=== PATIENT | female | born 1930 | race Caucasian/White ===

== ENCOUNTER 2016-08-21 22:34 | Inpatient (IN) | payer MEDICARE ==
[~2016-08-21] VITALS: Ht 157 cm; Wt 66.0 kg
--- NOTE | ~2016-08-21 | WRIGHTHP ---
[place], [place] PATIENT HISTORY AND PHYSICAL EXAM NAME: YRN CARABALLO [facility] #: [id number] UNIT #: [id number] ROOM: 420 DOCTOR: BHUPENDRA MCFARLAND MD BIRTHDATE: [birth year] DOS: 08/22/2016 HISTORY OF PRESENT ILLNESS: The patient is 86 years old, patient of Dr. Bishop, comes in after having found to have epistaxis at the [facility]. She lives in the assisted living. She has been doing fairly well at the [facility] as per the patient, has been following with Dr. Bishop and has been checking his protime, but she is not exactly sure when her last one was. She was admitted here in May with chest pain and was ruled out for NE and she was discharged to home. The patient denies having any chest pains or palpitations, does not have any fever or chills. PAST MEDICAL HISTORY: 1. Chronic atrial fibrillation, for which she is on Coumadin. She was in rapid ventricular response during the last hospitalization in May. 2. Hypothyroidism. 3. Benign hypertension. 4. History of coronary artery disease of the [place] coronaries with a history of stenting. MEDICATIONS: Medications were amiodarone 200 b.i.d., Xanax 0.25 b.i.d., amlodipine 5 daily, ascorbic acid 500 mg daily, BuSpar 5 b.i.d., vitamin D 1000 units daily, levothyroxine 0.05 daily, losartan 50 daily, metformin 500 b.i.d., metoprolol 50 t.i.d., Zofran 82 mg q.6h., Pravachol 20 daily, Risperdal 0.25 q.h.s., warfarin 2.5 Tuesday, Tuesday, Tuesday, Tuesday, Tuesday and 5 mg Tuesday and . SOCIAL HISTORY: Nonsmoker, does not use any alcohol. She is unmarried and does not have any children. PHYSICAL EXAMINATION: GENERAL: She is awake and alert and oriented, slightly anxious, pulled out her Rhino plug. VITAL SIGNS: Blood pressure is 130/80, pulse is 60, respirations 18, temperature 97.3. HEENT: Left nostril continues to have bright red blood coming out quite rapidly. LUNGS: Clear. CARDIOVASCULAR: Irregular, controlled. ABDOMEN: Obese, soft. EXTREMITIES: Without any edema. ASSESSMENT: 1. Epistaxis, Rhino plug was put in the Emergency Room, but unfortunately, the patient has pulled it out, we will pack it this morning. 2. Hypercoagulable state from long-term use of anticoagulants. The patient will have a Coumadin held and because of profuse bleeding will be given one dose of vitamin K and 1 unit of fresh frozen plasma. Recheck the protime in the morning. 3. Chronic atrial fibrillation, controlled right now. She is not a candidate for Coumadin, which will be discontinued. [place], [place] PATIENT HISTORY AND PHYSICAL EXAM [facility]: [facility] [id number] UNIT #: [id number] ROOM: [facility] DOCTOR: BHUPENDRA MCFARLAND MD BIRTHDATE: [birth year] 4. Benign hypertension, controlled. 5. Type 2 diabetes mellitus, non-insulin dependent. I ordered a regular diet for the patient. We will check blood sugars twice a day. BHUPENDRA MCFARLAND MD CM:HISPHYS:PATIENT HISTORY AND PHYSICAL EXAMINATION [id number] BHUPENDRA MCFARLAND MD 08/22/16 1327 interface
--- NOTE | ~2016-08-21 | PR ---
[place], [place] PROGRESS NOTE NAME: YRN CARABALLO [facility] #: [id number] UNIT #: [id number] ROOM: 420 DOCTOR: ROZ DEE,MIC Lyle BIRTHDATE: [birth year] DOS: 08/24/2016 SUBJECTIVE: The patient is fairly back to her normal mental state. She is no longer agitated and restless, but she is not quite sure about the date of arrival to the hospital. OBJECTIVE: VITAL SIGNS: Graphic trends show that if her blood pressure is 150/60, pulse is 57, respirations 20, temperature 97.8. LUNGS: Clear. HEART: Irregular. ABDOMEN: Soft. EXTREMITIES: Without any edema. Normal epistaxis. LABORATORY DATA: Blood sugar was 139 this morning. ASSESSMENT AND PLAN: 1. Epistaxis, which is resolved. 2. Hypercoagulable state from a long-term use of anticoagulants. Coumadin has been discontinued, fresh frozen plasma and vitamin K was given and the protimes have become normal. The patient is probably not a good candidate for Coumadin because of the pretty significant bleed. I have discontinued the Coumadin. She will follow up with her PCP as an outpatient and eating. They can make the decision as regards to whether the patient should go back on the medicines are not and since amiodarone dosage was cut down the heart rate has improved. MIC COURTNEY MD CM:PNTRANS [phone] MIC COURTNEY MD 08/24/16 1015 interface
--- NOTE | ~2016-08-21 | PR ---
[place], [place] PROGRESS NOTE NAME: YRN CARABALLO [facility] #: [id number] UNIT #: [id number] ROOM: 420 DOCTOR: BHUPENDRA MCFARLAND MD BIRTHDATE: [birth year] DOS: 08/22/2016 SUBJECTIVE: The patient became more restless as the day progressed and had to go on one-on-one, one dose of Haldol was also given. This morning, she woke up , is fairly awake and alert and oriented, does not appear to be in any distress and did answer questions appropriately, knew what happened yesterday. OBJECTIVE: VITAL SIGNS: Graphic trend shows a pressure of 180/61, pulse of 50, respirations 20, temperature 98.0. LUNGS: Diminished breath sounds, clear. HEART: Irregular. ABDOMEN: Obese, soft. EXTREMITIES: Without any edema. As per the nursing staff and the aides, the patient did sleep very well. ASSESSMENT AND PLAN: 1. Severe epistaxis from hypercoagulable state. The patient received vitamin K and fresh frozen plasma yesterday and further packing of the nasal cavity, and the patient has not had any further episodes of bleeding. 2. Chronic atrial fibrillation, on Coumadin. Protime was extremely high. Coumadin on hold. We will restart at a later date. 3. Bradycardia. We will cut back on the dose of the amiodarone to 200 mg daily. 4. Failure to thrive with encephalopathy and frailty. The last PT/OT for evaluation as well as social service consult for transfer back to the assisted living. If the mental status improves, she may be able to go back to the assisted living, which seems like almost back to normal. 5. Benign hypertension. Pressures are slightly on the high side. We will continue to follow that up. BHUPENDRA MCFARLAND MD CM:PNTRANS [phone] BHUPENDRA MCFARLAND MD 09/29/16 1142 interface
--- NOTE | ~2016-08-21 | DS ---
[place], [place] DISCHARGE SUMMARY NAME: YRN CARABALLO [facility] #: [id number] UNIT #: [id number] ROOM: 420 DOCTOR: BHUPENDRA MCFARLAND MD BIRTHDATE: [birth year] DOS: 08/24/2016 DIAGNOSES: 1. Epistaxis, resolved. 2. Hypercoagulable state from long-term use of anticoagulants. 3. Long-term use of anticoagulants. 4. Chronic atrial fibrillation with bradycardia. 5. Encephalopathy, metabolic. 6. Benign hypertension. 7. Hypothyroidism. 8. Coronary artery disease of [place] coronaries. 9. Type 2 diabetes mellitus, non-insulin dependent. DISCHARGE MEDICATIONS: The patient's medications on discharge will be amiodarone 200 mg daily, Xanax 0.25 twice a day p.r.n. which are home medication, losartan 50 daily, metformin 500 b.i.d., Pravachol 20 daily, ascorbic acid is being discontinued because of the hypercoagulable state, the warfarin has been discontinued. This needs to be reordered by the PCP at a later date, BuSpar 5 b.i.d., Zofran 2 mg q.6h. p.r.n., metformin 500 b.i.d., sliding scale insulin, levothyroxine 50 mcg daily, vitamin D 1000 units daily. DIET: ADA 1800, blood sugars twice a day with coverage. HOSPITAL COURSE: This patient is 86 years old, who comes in with a massive bleed from her nostril. It was difficult to control in the Emergency Room, so the patient was admitted after Rhino plug was placed. Her protime was also extremely elevated. After admission, the patient became quite confused and pulled out the Rhino plug and the nose continued to start bleeding. It was difficult to stop and so she had packing applied. Fresh frozen plasma and vitamin K was given, and the Coumadin was discontinued and the protime has come down. H and H was ordered, which did not show much drop from 13.3-11.8. MRSA of the nares was negative. BMP showed creatinine of 1.6 with a GFR of 37, stage III renal failure. The patient did have a on one-on-one during her stay here because of her confusion, restlessness, and wanting to wander and leave the facility. This resolved after 24 hours and an injection of Haldol. The patient is much more awake and alert and oriented, knows her events prior to this discharge, but she does get a little disoriented as regards to exact time of admission and at the end exact of admission. The patient is stable and PT and OT has evaluated and they feel that she can go to assisted living. Visiting nurses will be consulted. PT/OT has been ordered and patient to follow up with her PCP, Dr. Bishop as an outpatient about continuation of her Coumadin. [place], [place] DISCHARGE SUMMARY NAME: YRN CARABALLO UNIT #: [id number] ROOM: 420 DOCTOR: BHUPENDRA MCFARLAND MD BIRTHDATE: [birth year] BHUPENDRA MCFARLAND MD CM:DISCHARG [id number] BHUPENDRA MCFARLAND MD 08/24/16 0943 interface
[2016-08-21 22:34] VITALS: BP 118/60
[~2016-08-21 22:34] MED LIST: ACETAMINOPHEN325 M2 PO; ALPRAZOLAM0.25 M2 PO; AMOXICILLIN500 M2 PO; ANTIVERT12.5 MG PO; ASCORBIC ACID500 M2 PO; ASPIRIN81 M1 PO; AUGMENTIN 875 M1 TAB PO; CARDIZEM CD240 M1 PO; CIPRODEX 0.3%-7.5 ML OT; CLARITIN10 MG PO; COMPAZINE10 MG PO; COUMADIN5 M2 PO; Coumadin5 MG PO; DIGOXIN0.125 MG PO; IMDUR SA30 MG PO; LASIX20 MG PO; LEVOTHYROXINE0.05 MG PO; LOPRESSOR25 MG PO; LOSARTAN POTAS100 M1 PO; METFORMIN500 MG PO; METOPROLOL TART50 M1 PO; PACERONE200 MG PO; POTASSIUM CHLO10 MEQ PO; PRAVASTATIN SOD20 MG PO; RISPERDAL M-TAB1 MG PO; VITAMIN D31000 IU PO; WARFARIN SOD5 MG PO; ZOFRAN ODT4 MG SL
[2016-08-21] MEDS ORDERED: COUMADIN5 M2 PO ×2 (22:50→22:51)
[2016-08-21] MEDS ORDERED: NORVASC5 MG PO (22:53)
[2016-08-21] MEDS ORDERED: BUSPAR5 MG PO (22:53)
[2016-08-21] MEDS ORDERED: Zofran4 MG PO (22:55)
[2016-08-21 22:59] LABS: BASO % 0.5 % (0.0-1.0); EOS # 0.1 10*3/uL (0.0-0.4); EOS % 1.8 % (1.0-4.0); HEMATOCRIT 41.6 % (37.0-47.0); HEMOGLOBIN 13.3 g/dl (12.0-16.0); LYMPH # 1.1 10*3/uL (1.3-4.4); LYMPH % 13.5 % (27.0-41.0); MEAN CELL VOLUME 98.8 fl (81.0-99.0); MEAN CORPUSCULAR HGB 31.6 pg (27.0-31.0); MEAN PLATELET VOLUME 10.9 fl (9.6-12.3); MONO # 0.8 10*3/uL (0.1-1.0); NEUT # 5.8 10*3/uL (2.3-7.9); NEUT % 73.9 % (47.0-73.0); PLATELET COUNT AUTOMATED 294 10*3/uL (130-400); RED BLOOD COUNT 4.21 10*6/uL (4.10-5.10); WHITE BLOOD COUNT 7.9 10*3/uL (4.8-10.8)
[2016-08-21 23:07] VITALS: BP 136/53
[2016-08-21 23:11] LABS: POTASSIUM 4.3 mmol/L (3.5-5.1)
[2016-08-21 23:25] LABS: INTERNATIONAL NORM RATIO 10.2 (2.0-3.5)
[2016-08-22] VITALS (9 sets, daily range): BP systolic 114–187; BP diastolic 43–94
[2016-08-22 07:32] LABS: PROTHROMBIN TIME 91.8 SECONDS (9.0-12.4)
[2016-08-22 07:36] LABS: INTERNATIONAL NORM RATIO 8.1 (2.0-3.5)
[2016-08-22] MEDS ORDERED: RISPERDAL0.25 MG PO (11:29)
[2016-08-23] VITALS: BP 180/61
[2016-08-23 06:37] LABS: BASO % 0.5 % (0.0-1.0); EOS # 0.2 10*3/uL (0.0-0.4); EOS % 1.8 % (1.0-4.0); HEMATOCRIT 36.7 % (37.0-47.0); HEMOGLOBIN 11.8 g/dl (12.0-16.0); LYMPH # 1.1 10*3/uL (1.3-4.4); LYMPH % 13.4 % (27.0-41.0); MEAN CELL VOLUME 98.9 fl (81.0-99.0); MEAN CORPUSCULAR HGB 31.8 pg (27.0-31.0); MEAN CORPUSCULAR HGB CONC 32.2 g/dl (33.0-37.0); MEAN PLATELET VOLUME 11.1 fl (9.6-12.3); MONO # 0.7 10*3/uL (0.1-1.0); MONO % 8.7 % (3.0-9.0); NEUT # 6.2 10*3/uL (2.3-7.9); NEUT % 75.1 % (47.0-73.0); PLATELET COUNT AUTOMATED 248 10*3/uL (130-400); RED BLOOD COUNT 3.71 10*6/uL (4.10-5.10); RED CELL DISTRI WIDTH 14.8 % (0-14.5); WHITE BLOOD COUNT 8.3 10*3/uL (4.8-10.8)
[2016-08-23 07:14] LABS: INTERNATIONAL NORM RATIO 1.4 (2.0-3.5); PROTHROMBIN TIME 14.6 SECONDS (9.0-12.4)
[2016-08-23 07:39] LABS: POTASSIUM 4.1 mmol/L (3.5-5.1)
[2016-08-23 08:00] VITALS: BP 154/60
[2016-08-23 12:00] VITALS: BP 141/72
[2016-08-23 16:00] VITALS: BP 140/88
[2016-08-23 20:00] VITALS: BP 155/53
[2016-08-24] VITALS: BP 130/62
[2016-08-24 08:00] VITALS: BP 150/60
[2016-08-24] MEDS ORDERED: PACERONE200 MG PO (08:08)
== END 2016-08-24 11:06 | disposition home or self-care (01) | DRG 150 ==
LOC: ED 22:34 → EDHOLD 08-22 00:57 → 4E 08-22 00:57
PROVIDERS: Emergency Medicine Emergency Medical Services; Internal Medicine
PROC: 2Y41X5Z Packing of Nasal Region using Packing Material (ICD-10-PCS; principal; 2016-08-22)
PROC: 30233L1 Transfusion of Nonautologous Fresh Plasma into Peripheral Vein, Percutaneous Approach (ICD-10-PCS; 2016-08-22)
PROC: 30233K1 Transfusion of Nonautologous Frozen Plasma into Peripheral Vein, Percutaneous Approach (ICD-10-PCS; 2016-08-22)
DX: R04.0 Epistaxis (principal); G93.41 Metabolic encephalopathy; D68.32 Hemorrhagic disorder due to extrinsic circulating anticoagulants; D68.69 Other thrombophilia; E11.22 Type 2 diabetes mellitus with diabetic chronic kidney disease; I48.2 Chronic atrial fibrillation; N18.3 Chronic kidney disease, stage 3 (moderate); R54 Age-related physical debility; E78.5 Hyperlipidemia, unspecified; R62.7 Adult failure to thrive; I12.9 Hypertensive chronic kidney disease with stage 1 through stage 4 chronic kidney disease, or unspecified chronic kidney disease; T45.515A Adverse effect of anticoagulants, initial encounter; E03.9 Hypothyroidism, unspecified; I25.10 Atherosclerotic heart disease of native coronary artery without angina pectoris; Z79.01 Long term (current) use of anticoagulants; Z90.49 Acquired absence of other specified parts of digestive tract; Z98.61 Coronary angioplasty status; Z82.49 Family history of ischemic heart disease and other diseases of the circulatory system

== ENCOUNTER → 2017-02-16 | Outpatient (CLI) | payer MEDICARE ==
[~2017-02-16] MED LIST changes: +BUSPAR5 MG PO; +NORVASC5 MG PO; +RISPERDAL0.25 MG PO; +Zofran4 MG PO
== END | disposition home or self-care (01) ==
LOC: RAD/SH 03:09 → RAD 09:00 → RAD/SH 09:00
DX: R13.10 Dysphagia, unspecified (principal); I34.8 Other nonrheumatic mitral valve disorders

== ENCOUNTER → 2017-03-30 | Day surgery (SDC) | payer MEDICARE ==
[~2017-03-30] VITALS: Ht 162.5 cm; Wt 66.7 kg
[~2017-03-30] MED LIST changes: +PROTONIX40 MG PO; +REGLAN5 MG PO
--- NOTE | ~2017-03-30 | O ---
[place], [place] OPERATIVE NOTE NAME: YRN CARABALLO [facility] #: [id number] UNIT #: [id number] ROOM: DOCTOR: XOCHITL RAM MD[place] BIRTHDATE: [birth year] DOS: 03/30/2017 GASTROENDOSCOPIC REPORT HISTORY OF PRESENT ILLNESS: An 87-year-old patient who has presented with chief complaint of dysphagia in [facility] with dyspepsia, in addition epigastric distress. PAST MEDICAL HISTORY: Associated hypertension, diabetes mellitus, hypercholesterolemia and hypothyroidism. PAST SURGICAL HISTORY: Cardiac stents, cholecystectomy. FAMILY HISTORY: Noncontributory. ALLERGIES: No known medication. SOCIAL HISTORY: Nonsmoker, nonalcohol consumer. Residing in penitentiary. PROCEDURE: Today's procedure part of investigation is panendoscopy plus biopsies and balloon dilation of esophagus. PREMEDICATION: Versed and Diprivan. SCOPE: Olympus forward-viewing gastroscope Q10 video. REPORT: After putting the patient in the left lateral position and after application of lubricant to the scope, the scope was introduced. Thereafter, under direct visualization, I advanced through the length of the esophagus without difficulty. Cervical, thoracic and distal esophagus carefully examined. Large distal esophageal ulceration with scar was noticed. Small hiatal hernia of 2 cm was identified. Gastric pouch was entered. A bile reflux gastritis noticed. Pyloric ring had a stricture with the scope itself was dilated and scope was gradually withdrawn. Gastric content suctioned out and air was removed and at this stage, a balloon size 15 was introduced into the gastric pouch and orally extracted. Highest resistance at distal esophagus was experienced. The patient tolerated the procedure well. IMPRESSION: Distal esophageal ulcer, status post biopsy, distal esophageal stricture, status post balloon dilation, small hiatal hernia, bile reflux gastritis, status post biopsy, status post pyloric ring dilation with the scope. PLAN AND DISCUSSION: Soft diet, antireflux measures with elevation of head of the bed at least 10 inches. As far as plan and discussion, we are going to start the patient on Protonix 40 mg p.o. daily, but for first 2 weeks, we are going to use Protonix 40 mg 1 b.i.d. under especial directions, Reglan 2.5 mg 1 hour a.c. dinner and follow up as an outpatient should she continue with her dysphagia in future as the ulcerations of distal esophagus was healed in the next 2 months. Then, we will reschedule outpatient esophageal dilation to optimal size, perhaps 20. [place], [place] OPERATIVE NOTE NAME: YRN CARABALLO UNIT #: [id number] ROOM: DOCTOR: LEANNA DEE,ALSIA BIRTHDATE: [birth year] I thank you very much indeed for your kind referral. ALISA RAM MD CM:OPRECORD:OPERATIVE NOTE [id number] ALISA RAM MD 03/30/17 1510 interface
[2017-03-30 10:00] VITALS: BP 199/71
[2017-03-30 10:57] VITALS: BP 170/60
[2017-03-30 11:12] VITALS: BP 170/60
[2017-03-30 11:14] VITALS: BP 170/60
[2017-03-30 11:32] VITALS: BP 167/74
== END | disposition home or self-care (01) ==
LOC: SDC 03-24 14:45
DX: K22.2 Esophageal obstruction (principal); K44.9 Diaphragmatic hernia without obstruction or gangrene; K21.9 Gastro-esophageal reflux disease without esophagitis; K29.50 Unspecified chronic gastritis without bleeding; K22.10 Ulcer of esophagus without bleeding; E78.00 Pure hypercholesterolemia, unspecified; E03.9 Hypothyroidism, unspecified; F41.9 Anxiety disorder, unspecified; E11.22 Type 2 diabetes mellitus with diabetic chronic kidney disease; I13.0 Hypertensive heart and chronic kidney disease with heart failure and stage 1 through stage 4 chronic kidney disease, or unspecified chronic kidney disease; N18.9 Chronic kidney disease, unspecified; I50.9 Heart failure, unspecified; F03.90 Unspecified dementia, unspecified severity, without behavioral disturbance, psychotic disturbance, mood disturbance, and anxiety; Z95.5 Presence of coronary angioplasty implant and graft; I25.10 Atherosclerotic heart disease of native coronary artery without angina pectoris; I48.91 Unspecified atrial fibrillation; Z79.01 Long term (current) use of anticoagulants; Z90.49 Acquired absence of other specified parts of digestive tract

== ENCOUNTER 2017-04-29 18:53 | Emergency (ER) | payer MEDICARE ==
[~2017-04-29] VITALS: Wt 59.0 kg
[2017-04-29 21:29] VITALS: BP 171/87
== END 2017-04-29 21:03 | disposition home or self-care (01) ==
LOC: ED 18:53
DX: Z00.8 Encounter for other general examination (principal); T65.891A Toxic effect of other specified substances, accidental (unintentional), initial encounter; Z90.49 Acquired absence of other specified parts of digestive tract; Z95.5 Presence of coronary angioplasty implant and graft; Z79.899 Other long term (current) drug therapy; Y92.9 Unspecified place or not applicable

== ENCOUNTER 2017-05-18 08:42 | Inpatient (IN) | payer MEDICARE ==
[~2017-05-18] VITALS: Ht 157.4 cm; Wt 64.6 kg
--- NOTE | ~2017-05-18 | PR ---
[place], [place] PROGRESS NOTE NAME: YRN CARABALLO UNIT #: [id number] ROOM: 510 DOCTOR: DAWNA VOGT MD BIRTHDATE: [birth year] DOS: 05/23/2017 SUBJECTIVE: The patient was seen today at her bedside on 05/23/2017. No family was in attendance. She is an 87-year-old woman with a history of dementia who presented to the hospital with a left bundle branch block, paroxysmal atrial fibrillation and congestive heart failure. Her code status is comfort care and we have been managing her medically. An echocardiogram interpreted by Dr. Gaspar on 05/20/2017 showed an ejection fraction of 30% with indeterminate diastolic function and moderate mitral insufficiency. Today, she is sitting in a chair beside her bed. Her breathing appears to be unlabored and she does appear to be comfortable. She is sleeping. PHYSICAL EXAMINATION: VITAL SIGNS: Her pulse is 52 and regular, blood pressure is 158/70. She is afebrile. NECK: Supple. She has no jugular distention and only mild hepatojugular reflux. Carotids are full. LUNGS: Respirations are unlabored. She has decreased breath sounds at the bases. HEART: Has a regular rhythm with a fourth heart sound, but no third heart sound. No obvious murmurs are present. Her extremities showed no edema. LABORATORY DATA: Hemoglobin is 9.8, white count 7400, platelet count 273,000. Sodium 142, potassium 2.8, BUN 20 and creatinine 1.94. She was given oral potassium earlier today. IMPRESSION: 1. Dilated cardiomyopathy, etiology not established. Ejection fraction 30%. 2. Acute on chronic systolic congestive heart failure. 3. Paroxysmal atrial fibrillation. 4. Chronic renal insufficiency with acute exacerbation. 5. Essential hypertension. 6. Type 2 diabetes mellitus. 7. Hyperlipidemia. 8. Code status is do not resuscitate, comfort care. PLAN: We will continue supportive care only and reevaluate her intermittently while she is still in the hospital. I thank the hospitalist physicians for asking our advice regarding her care. [place], [place] PROGRESS NOTE NAME: YRN CARABALLO UNIT #: [id number] ROOM: 510 DOCTOR: DAWNA VOGT MD BIRTHDATE: [birth year] DAWNA VOGT MD CM:PNDENZEL 58 DAWNA VOGT MD 05/23/17 2358 interface
--- NOTE | ~2017-05-18 | PR ---
[place], [place] PROGRESS NOTE NAME: YRN CARABALLO UNIT #: [id number] ROOM: 510 DOCTOR: DAWNA VOGT MD BIRTHDATE: [birth year] DOS: 05/21/2017 SUBJECTIVE: The patient was seen today at her bedside for followup of her atrial fibrillation and heart failure with reduced ejection fraction. She is sitting in a chair at the side of her bed and is breathing easily. She denies any chest pain. An echocardiogram was done yesterday and interpreted by Dr. Nilson Gaspar. It showed left ventricular size to be normal, but overall left ventricular systolic function was severely impaired with an ejection fraction of 30%. Diastole could not be assessed. The left atrium was moderately enlarged. There was mild aortic insufficiency, moderate mitral insufficiency and moderate tricuspid insufficiency. PHYSICAL EXAMINATION: GENERAL: Today, she is an elderly white female who is alert and in no obvious distress. VITAL SIGNS: Pulse is between 100 and 110 and irregularly irregular. Blood pressure is 148/88, she is afebrile. She weighs 64.6 kilograms. NECK: Supple. There is mild jugular distention with hepatojugular reflux present. Carotids are full. LUNGS: Respirations are unlabored. She does have decreased breath sounds at the bases. There were no rales. HEART: Has an irregularly irregular rapid rate without murmurs or gallops. The PMI was not displaced. ABDOMEN: Soft and normally active. EXTREMITIES: Showed no edema bilaterally. SKIN: Her skin was warm and dry without obvious rashes. LABORATORY DATA: Hemoglobin 2 days ago was 10.4, white count was 7500. Sodium today is 142 with potassium 3.6, BUN 17, and creatinine 2.07. IMPRESSION: 1. Heart failure with reduced left ventricular ejection fraction. 2. Left bundle branch block. 3. History of paroxysmal atrial fibrillation. 4. Coronary artery disease with history of percutaneous intervention. 5. History of hypothyroidism. 6. History of essential hypertension. PLAN: We will continue to increase her beta blockers as tolerated by her heart rate and blood pressure. Given her DNR-CC status and her age, continued conservative care is appropriate. We thank the hospitalist physicians for asking our advice regarding her care. [place], [place] PROGRESS NOTE NAME: YRN CARABALLO UNIT #: [id number] ROOM: 510 DOCTOR: DAWNA VOGT MD BIRTHDATE: [birth year] DAWNA VOGT MD CM:PNTRANS [id number] DAWNA VOGT MD 06/01/17 1445 interface
--- NOTE | ~2017-05-18 | PR ---
[place], [place] PROGRESS NOTE NAME: YRN CARABALLO [facility] #: [id number] UNIT #: [id number] ROOM: 510 DOCTOR: DAWNA VOGT MD BIRTHDATE: [birth year] DOS: 05/22/2017 SUBJECTIVE: The patient was seen at her bedside today with family in attendance. She is an 87-year-old woman with a history of dementia who presented to the hospital with a left bundle branch block, paroxysmal atrial fibrillation and congestive heart failure. Her code status is comfort care and we have been trying to manage her medically as best we can. This has been hampered by renal insufficiency. An echocardiogram done and interpreted by Dr. Gaspar on 05/20/2017 showed that she has an ejection fraction of 30% with indeterminate diastolic function and moderate mitral insufficiency. Today, she does seem to be more dyspneic. She seems to be breathing in a more labored fashion and family members have noticed this. She denies any chest pain. PHYSICAL EXAMINATION: VITAL SIGNS: Today, her pulse is 69 and regular, blood pressure is 164/95. She is afebrile. She weighs 64.6 kg and has a body mass index of 26.1. HEENT: Normocephalic, atraumatic. Extraocular muscles are intact. NECK: Supple. She does have jugular distention when sitting upright. Carotids are full. LUNGS: Respirations are slightly labored. She does have bibasilar rales. There is no presacral edema. She does not have expiratory prolongation or wheezes. HEART: Has a regular rhythm with a fourth heart sound, but no third heart sound. No obvious murmurs are present. ABDOMEN: Soft. EXTREMITIES: Showed no edema. LABORATORY DATA: Earlier today, she had been placed on IV fluids to help with renal perfusion and to help decrease her creatinine. I think that she will not tolerate extra fluids at this time and therefore, I took the liberty of stopping the IV fluid bolus. I will start her on afterload reduction in the form of long-acting nitrates and hydralazine. Hopefully, this will improve left ventricular performance and thereby improve renal functions. IMPRESSIONS: 1. Dilated cardiomyopathy, etiology not established. Ejection fraction 30%. 2. Acute on chronic systolic congestive heart failure. 3. Paroxysmal atrial fibrillation. 4. Chronic renal insufficiency with acute exacerbation. 5. Essential hypertension. 6. Type 2 diabetes mellitus. 7. Hyperlipidemia. 8. Code status is DO NOT RESUSCITATE comfort care. PLAN: As noted, I will stop her IV fluids and start her on hydralazine and nitrates. At this point, our goal is to be as conservative with her as possible consistent with improving her comfort. [place], [place] PROGRESS NOTE NAME: YRN CARABALLO UNIT #: [id number] ROOM: 510 DOCTOR: DAWNA VOGT MD BIRTHDATE: [birth year] We thank the hospitalist physicians for asking our advice regarding her care. DAWNA VOGT MD CM:PNTRANS [phone] DAWNA VOGT MD 06/01/17 1446 interface
[2017-05-18 09:04] VITALS: BP 136/100
[2017-05-18 09:22] LABS: BASO % 0.5 % (0.0-1.0); EOS # 0.1 10*3/uL (0.0-0.4); EOS % 1.7 % (1.0-4.0); HEMATOCRIT 34.4 % (37.0-47.0); HEMOGLOBIN 10.7 g/dl (12.0-16.0); LYMPH % 13.2 % (27.0-41.0); MEAN CELL VOLUME 105.2 fl (81.0-99.0); MEAN CORPUSCULAR HGB 32.7 pg (27.0-31.0); MEAN CORPUSCULAR HGB CONC 31.1 g/dl (33.0-37.0); MONO # 0.9 10*3/uL (0.1-1.0); MONO % 11.9 % (3.0-9.0); NEUT # 5.5 10*3/uL (2.3-7.9); NEUT % 72.4 % (47.0-73.0); PLATELET COUNT AUTOMATED 288 10*3/uL (130-400); RED BLOOD COUNT 3.27 10*6/uL (4.10-5.10); RED CELL DISTRI WIDTH 13.8 % (0-14.5); WHITE BLOOD COUNT 7.6 10*3/uL (4.8-10.8)
[2017-05-18 09:39] LABS: ALBUMIN 3.1 gm/dl (3.1-4.5); CREATININE 2.16 mg/dL (0.55-1.02); POTASSIUM 3.6 mmol/L (3.5-5.1); TOTAL PROTEIN 7.3 gm/dL (6.4-8.2); TROPONIN I 0.042 ng/ml (<0.045)
[2017-05-18 11:41] LABS: BILIRUBIN NEGATIVE (NEGATIVE); BLOOD TRACE-INTACT (NEGATIVE); CLARITY SL CLOUDY (CLEAR); COLOR YELLOW (YELLOW); GLUCOSE NEGATIVE (NEGATIVE); KETONE NEGATIVE (NEGATIVE); LEUKO ESTERASE NEGATIVE (NEGATIVE); NITRITE NEGATIVE (NEGATIVE); UROBILINOGEN 0.2 E.U./dl (0.2-1.0)
[2017-05-18 11:50] LABS: EPITHELIAL CELLS 0-2; RBC 0-2 rbc/hpf (0-2); WBC 0-2 wbc/hpf (0-5)
[2017-05-18 13:00] VITALS: BP 140/98
[2017-05-18 13:50] VITALS: BP 164/88
--- NOTE | 2017-05-18 13:50 | NUR ---
A 87, admitted to , under the services of KARON Addison DO with a diagnosis of TORRES. Chief complaint is CONFUSED. Patient arrived via stretcher from ER. Monitor applied. Initial assessment completed. Vital signs taken and recorded. KARON ADDISON DO notified of admission to the unit. Orders received. See assessment for past medical history, medications and allergies. Patient and/or family oriented to unit. [facility] visitation policy reviewed. Clothing/patient valuable form completed. KASHMIR MELGAR
[2017-05-18] MEDS ORDERED: AMIODARONE HCL100 M1 PO (15:06)
[2017-05-18] MEDS ORDERED: LOSARTAN POTASS25 M1 PO (15:11)
[2017-05-18] MEDS ORDERED: TOPROL XL25 MG PO (15:15)
[2017-05-18] MEDS ORDERED: DETROL2 MG PO (15:19)
[2017-05-18] MEDS ORDERED: ELIQUIS2.5 M1 PO (15:19)
[2017-05-18] MEDS ORDERED: LEXAPRO10 MG PO (15:20)
[2017-05-18] MEDS ORDERED: MELATONIN3 MG PO (15:20)
[2017-05-18] MEDS ORDERED: PROAIR HFA8.5 GM INH (15:22)
[2017-05-18] MEDS ORDERED: ACID REDUCER 1150 MG PO (15:23)
--- NOTE | 2017-05-18 15:29 | NUR ---
DR. GARRISON AWARE OF DNR-CC PER POA, TROPONIN LEVEL AND UA FROM [facility].
--- NOTE | 2017-05-18 15:49 | NUR ---
Destini notified of consult.
[2017-05-18 20:00] VITALS: BP 148/98
--- NOTE | 2017-05-18 20:00 | NUR ---
IN TO ASSESS PATIENT. PATIENT PLEASANTLY CONFUSED. ALERT TO SELF ONLY. STATES SHE IS WORRIED ABOUT HER CATS. BREATHING IS EASY AND REGULAR ON ROOM AIR. +1 PITTING EDEMA NOTED TO BLE. PATIENT DENIES ANY CP. BRUISING NOTED TO THE PATIENT BACK AND HIP FROM FREQU[place] FALLS. PATIENT INCONTINENT OF URINE. NORMOACTIVE BOWEL. CALL LIGHT WITHIN REACH, WILL MONITOR
[2017-05-19] VITALS: BP 102/72; BP 87/70
--- NOTE | 2017-05-19 01:25 | NUR ---
PRN ATIVAN FOR PT BECOMING INCREASINGLY AGITATED AND GETTING OUT OF BED
--- NOTE | 2017-05-19 02:30 | NUR ---
PRN XANAX APPEARS EFFECTIVE, PT SLEEPING
[2017-05-19 06:47] LABS: BASO % 0.4 % (0.0-1.0); EOS # 0.1 10*3/uL (0.0-0.4); EOS % 1.1 % (1.0-4.0); HEMATOCRIT 32.9 % (37.0-47.0); HEMOGLOBIN 10.4 g/dl (12.0-16.0); LYMPH # 0.9 10*3/uL (1.3-4.4); LYMPH % 11.7 % (27.0-41.0); MEAN CELL VOLUME 105.1 fl (81.0-99.0); MEAN CORPUSCULAR HGB 33.2 pg (27.0-31.0); MEAN CORPUSCULAR HGB CONC 31.6 g/dl (33.0-37.0); MEAN PLATELET VOLUME 10.9 fl (9.6-12.3); MONO # 0.8 10*3/uL (0.1-1.0); MONO % 10.4 % (3.0-9.0); NEUT # 5.7 10*3/uL (2.3-7.9); PLATELET COUNT AUTOMATED 290 10*3/uL (130-400); RED BLOOD COUNT 3.13 10*6/uL (4.10-5.10); RED CELL DISTRI WIDTH 13.8 % (0-14.5); WHITE BLOOD COUNT 7.5 10*3/uL (4.8-10.8)
[2017-05-19 07:22] LABS: CREATININE 1.96 mg/dL (0.55-1.02); MAGNESIUM 1.9 mg/dL (1.5-2.1); PHOSPHOROUS 3.1 mg/dL (2.5-4.9); POTASSIUM 3.2 mmol/L (3.5-5.1)
[2017-05-19 07:41] LABS: VITAMIN D, 25-HYDROXY 37.7 ng/mL (30-100)
[2017-05-19 08:00] VITALS: BP 154/94
[2017-05-19 12:00] VITALS: BP 149/76
--- NOTE | 2017-05-19 13:26 | NUR ---
Patient is from [facility] assisted living and can return there when stable for discharge.
--- NOTE | 2017-05-19 14:29 | NUR ---
SPOKE WITH DR. BOYLE AND ASKED HIM IF HE WAS PLANNING ON PUTTING ORDERS IN PER DR. BRAR REQUEST. DR. BOYLE ADVISED THAT HE WILL BE ON THE FLOOR LATER AND WILL THEN PUT ORDERS IN. NOTIFIED DR. WOODRUFF OF THIS.
[2017-05-19 16:00] VITALS: BP 139/93
[2017-05-19 20:00] VITALS: BP 160/88
--- NOTE | 2017-05-19 20:51 | NUR ---
PRN XANAX GIVEN FOR PT INCREASING IN AGITATION AND ATTEMPTING TO CLIMB OUT OF BED AND DISTURBING NEIGHBOR. CALL LIGHT WITHIN REACH, WILL MONITOR
[2017-05-20] VITALS: BP 159/80
[2017-05-20 07:03] LABS: POTASSIUM 3.8 mmol/L (3.5-5.1)
[2017-05-20 08:00] VITALS: BP 152/88
--- NOTE | 2017-05-20 08:35 | NUR ---
Shift chart check completed.
[2017-05-20 16:00] VITALS: BP 143/82
[2017-05-20 20:00] VITALS: BP 140/78
--- NOTE | 2017-05-20 20:07 | NUR ---
PATIENT OOB IN CHAIR. STATES SHE FEELS MUCH BETTER. SHE IS PLEASANTLY CONFUSED. COOPERATIVE WITH CARE. RESPIRATIONS EASY/REGULAR. NO VOICED COMPLAINTS AT THIS TIME. WILL MONITOR.
--- NOTE | 2017-05-20 21:32 | NUR ---
PATIENT MEDICATED WITH PRN XANAX ORDERED FOR RESTLESSNESS. PATIENT TOOK PILL IN APPLESAUCE WITH NO ISSUES. CALL LIGHT IS IN REACH. WILL MONITOR.
[2017-05-21] VITALS: BP 138/72
--- NOTE | 2017-05-21 03:42 | NUR ---
Xanax effective to decrease anxiety and allow to rest quietly in bed. Resp easy and regular. Will continue to monitor.
--- NOTE | 2017-05-21 06:47 | NUR ---
Requested and medicated with Tylenol for complaints of severe back pain. Will continue to monitor effectiveness.
[2017-05-21 07:05] LABS: CREATININE 2.07 mg/dL (0.55-1.02); PHOSPHOROUS 3.1 mg/dL (2.5-4.9); POTASSIUM 3.6 mmol/L (3.5-5.1)
[2017-05-21 08:00] VITALS: BP 148/88
--- NOTE | 2017-05-21 08:22 | NUR ---
PT RESTING IN CHAIR, NO DISTRESS NOTED. SEE SHIFT ASSESSMENT. WILL MONITOR
[2017-05-21 16:00] VITALS: BP 134/75
[2017-05-21 20:00] VITALS: BP 99/68
--- NOTE | 2017-05-21 20:00 | NUR ---
SLEEPING IN SPIKE-CHAIR, AWAKENS EASILY BUT CONFUSED. RESTLESS WHEN AWAKE, PULLING AT CLOTHING. RESPIRATIONS EASY. LUNGS DIMINISHED. PULSE OX 95% RA. NON-PRODUCTIVE COUGH NOTED. +1 BLE EDEMA. CALL LIGHT WITHIN REACH. BODY ALARM MAINTAINED FOR SAFETY
--- NOTE | 2017-05-21 21:00 | NUR ---
ASSISTED TO BED BY STAFF X 3. PATIENT NOT BEARING ANY WEIGHT. PLACED IN BED AND POSITIONED FOR COMFORT. BED ALARM APPLIED FOR SAFETY
--- NOTE | 2017-05-21 21:17 | NUR ---
PATIENT MOANING WHEN PLACED IN BED, UNABLE TO STATE / RATE PAIN - MEDICATED WITH TYLENOL PER PRN ORDER.ALSO RECEIVED RESTORIL TO ASSIST WITH SLEEP. CALL LIGHT WITHIN REACH. BED ALARM MAINTAINED FOR SAFETY. WILL MONITOR
[2017-05-22] VITALS: BP 158/78
--- NOTE | 2017-05-22 | NUR ---
MEDS APPEAR EFFECTIVE. SLEEPING. RESPIRATIONS EASY. VSS. CALL LIGHT WITHIN REACH. BED ALARM MAINTAINED
--- NOTE | 2017-05-22 02:30 | NUR ---
SLEEPING WITH NO DISTRESS NOTED. RESPIRATIONS EASY. BED ALARM MAINTAINED
--- NOTE | 2017-05-22 06:09 | NUR ---
slept throughout night with no distress noted. awake and restless this am. repeatedly removing clothes. medicated with xanax per prn order. call light within reach. bed alarm maintained for safety
[2017-05-22 07:30] LABS: POTASSIUM 3.5 mmol/L (3.5-5.1)
[2017-05-22 07:35] LABS: CREATININE 2.11 mg/dL (0.55-1.02)
[2017-05-22 08:00] VITALS: BP 168/96
--- NOTE | 2017-05-22 08:15 | NUR ---
PT RESTING IN BED, NO DISTRESS NOTED. WILL MONITOR
[2017-05-22 12:00] VITALS: BP 164/95
--- NOTE | 2017-05-22 15:32 | NUR ---
PT RESTING IN BED. NO DISTRESS NOTED/ POA AT BEDSIDE
[2017-05-22 16:00] VITALS: BP 151/68
[2017-05-22 20:00] VITALS: BP 152/84
--- NOTE | 2017-05-22 22:20 | NUR ---
ATTEMPTED MULTIPLE TIMES TO ADMINISTER BEDTIME MEDICATIONS. PATIENT CALLING OUT SAYING "YOU'RE ALL TRYING TO KILL ME." RN SAT WITH PATIENT FOR A WHILE, JUST TRYING TO TALK WITH HER. AFTER >15 MIN, RN ASKED PATIENT IF SHE WOULD TAKE PM PILLS. PATIENT STATES "NO." WHEN ASKED WHY, PATIENT RESPONDS "I DON'T WANT TO." RN EXPLAINED TO PATIENT THAT THESE MEDICATIONS ARE IMPORTANT BECAUSE HER BLOOD PRESSURE IS RUNNING HIGH. PATIENT REPLIES "IT'LL GET HIGHER THEN." ASKED PATIENT MULTIPLE TIMES TO LET ME LISTEN TO HER HEART/LUNGS, PATIENT BEGINS SCREAMING "HELP HELP HELP." REFUSING TO LET THIS RN OR ANY OTHER RN ASSESS HER/ADMINISTER MEDICATIONS AFTER MULTIPLE ATTEMPTS. WILL CONTINUE TO MONITOR PATIENT. PATIENT LEFT IN SPIKE-CHAIR, PILLOW AND BLANKETS OFFERED. BODY ALARM INTACT. CALL LIGHT IN REACH.
[2017-05-23] VITALS: BP 152/82
--- NOTE | 2017-05-23 00:30 | NUR ---
PATIENT AGREES TO TAKE PM MEDICATIONS AT THIS TIME. PATIENT STATES SHE IS HAVING TROUBLE FALLING ASLEEP AND IS FEELING RESTLESS. PT TRYING TO CLIMB OUT OF SPIKE-CHAIR AND STATES SHE "GETS CONFUSED SOMETIMES." PT OFFERED PO RESTORIL PER PRN ORDER TO HELP HER SLEEP. PATIENT STATES "I WOULD LIKE THAT." PO RESTORIL GIVEN AT THIS TIME. PATIENT STATES SHE DOES NOT WANT TO MOVE TO BED JUST YET. REPOSITIONED IN SPIKE-CHAIR FOR COMFORT. WARM BLANKETS, SNACKS, DRINKS PROVIDED. WILL MONITOR. BODY ALARM INTACT, CALL LIGHT WITHIN REACH.
--- NOTE | 2017-05-23 03:54 | NUR ---
PATIENT REPOSITIONED IN BED AND COVERED WITH WARM BLANKETS FOR COMFORT. PATIENT STATES SHE FEELS MUCH BETTER NOW THAT SHE HAS RESTED. WILL CONTINUE TO MONITOR. CALL LIGHT LEFT IN REACH, BED LOCKED IN LOW POSITION, BED ALARM INTACT.
[2017-05-23 06:24] LABS: BASO % 0.5 % (0.0-1.0); EOS # 0.2 10*3/uL (0.0-0.4); EOS % 2.3 % (1.0-4.0); HEMATOCRIT 31.8 % (37.0-47.0); HEMOGLOBIN 9.8 g/dl (12.0-16.0); LYMPH # 0.8 10*3/uL (1.3-4.4); LYMPH % 10.4 % (27.0-41.0); MEAN CELL VOLUME 105.6 fl (81.0-99.0); MEAN CORPUSCULAR HGB 32.6 pg (27.0-31.0); MEAN CORPUSCULAR HGB CONC 30.8 g/dl (33.0-37.0); MEAN PLATELET VOLUME 11.3 fl (9.6-12.3); MONO # 0.7 10*3/uL (0.1-1.0); MONO % 9.6 % (3.0-9.0); NEUT # 5.7 10*3/uL (2.3-7.9); NEUT % 76.8 % (47.0-73.0); PLATELET COUNT AUTOMATED 273 10*3/uL (130-400); RED BLOOD COUNT 3.01 10*6/uL (4.10-5.10); RED CELL DISTRI WIDTH 14.3 % (0-14.5); WHITE BLOOD COUNT 7.4 10*3/uL (4.8-10.8)
[2017-05-23 07:02] LABS: ALBUMIN 2.8 gm/dl (3.1-4.5); CREATININE 1.94 mg/dL (0.55-1.02); POTASSIUM 2.8 mmol/L (3.5-5.1)
[2017-05-23 07:03] LABS: TOTAL PROTEIN 6.6 gm/dL (6.4-8.2)
[2017-05-23 08:00] VITALS: BP 158/70
--- NOTE | 2017-05-23 10:39 | NUR ---
PT UP IN CHAIR AT BEDSIDE ATE 75% OF BREAKFAST. PT PLEASANTLY CONFUSED AND COOPERATIVE AT THIS TIME. NO DISTRESS NOTED. VOICES NO NEEDS. CHAIR ALARM IN PLACE. CALL LIGHT IN REACH.
--- NOTE | 2017-05-23 11:23 | NUR ---
PHYSICAL THERAPY PAtient evaluated on 5, full evaluation to follow. Continue wth PT as per plan of care with fall, alarms, dementia and poor safety awareness precautions. Will require SNF pror to returning to (A) living to return patient to PLOF. PAtient is moderate complexity via chart review, tests and evaluation: 11366. Thank you for this referral. Francisca Osorio,PT
--- NOTE | 2017-05-23 11:39 | NUR ---
Occupational Therapy evaluation completed this date on 5 with full eval to follow. Precautions inlclude fall risk, fear of falling, confusion/disorientation with difficulty following 1 step commands, moderate complexity level 25376, personal alarm. Recommend OT per POC and SNF upon d/c to enable safe return to [facility] PLOF. Thank you for this referral. Betsey Manzanares OTR/l
--- NOTE | 2017-05-23 11:49 | NUR ---
contacted Katie Gray regarding patient who currently lives at [facility]. Stated it is recommended patient goes to [facility] for short term skilled stay. Katie stated she has room for patient there, faxed referral, waiting for acceptance/precert.
--- NOTE | 2017-05-23 13:58 | NUR ---
SPOKE TO HEBER VIA TELEPHONE AND UPDATED HER ON PT STAUS. ADVISED HER OF MORNING LABS AND PT APPETITE, PT STABLE AT THIS TIME. PT NOT WITHDRAWN AND VOICES NEEDS AT THIS TIME. CHAIR ALRM IN PLACE. PT CURRENTLY EATING LUNCH. RESPS EASY ON RA. CALL LIGHT IN REACH.
[2017-05-23 16:00] VITALS: BP 149/51
[2017-05-23 20:00] VITALS: BP 155/57
--- NOTE | 2017-05-23 21:45 | NUR ---
PO ATIVAN ADMINISTERED PER PRN ORDER FOR RESTLESSNESS/ANXIETY. PATIENT PLEASANT AND COOPERATIVE, BUT ATTEMPTING TO CLIMB OUT OF SPIKE-CHAIR. WHEN OFFERED TO BE ASSISTED INTO BED, PATIENT STATES SHE HAS TO GO HOME AND CRIES OUT "LET MICHELLE IN THE DOOR." PATIENT SEEING OWN REFLECTION IN WINDOW AT THIS TIME. PATIENT AGREES TO TAKE XANAX TO HELP HER CALM DOWN.
--- NOTE | 2017-05-23 22:51 | NUR ---
EARLIER XANAX APPEARS EFFECTIVE. PATIENT SITTING UP IN SPIKE CHAIR, APPEARS LESS ANXIOUS/RESTLESS. WILL CONTINUE TO MONITOR.
[2017-05-24] VITALS: BP 152/56
--- NOTE | 2017-05-24 03:51 | NUR ---
PATIENT REPOSITIONED IN BED AT THIS TIME FOR COMFORT. PATIENT DENIES ANY PAIN/DISCOMFORT AT THIS TIME. WILL CONTINUE TO MONITOR. CALL LIGHT LEFT IN REACH.
[2017-05-24 08:00] VITALS: BP 146/60
--- NOTE | 2017-05-24 10:06 | NUR ---
PHYSICAL THERAPY Phuong seen this AM 1:1 for her therapy session and not wanting up at this time and could not talk her in to it. Pt had rom stretching to bilateral LE and very tight, lacking bilateral knee extension around -10d, Pt with call light and bed alarm on. GUME RAMIREZ SUPERVISOR [employer].
--- NOTE | 2017-05-24 13:41 | NUR ---
patient acccepted to [facility] and precert started. Waiting on auth.
[2017-05-24] MEDS ORDERED: PANTOPRAZOLE SO40 MG PO (15:31)
[2017-05-24] MEDS ORDERED: ALPRAZOLAM0.25 M2 PO (15:31)
[2017-05-24] MEDS ORDERED: METOPROLOL SUC100 M1 PO (15:31)
[2017-05-24] MEDS ORDERED: APRESOLINE10 MG PO (15:31)
[2017-05-24] MEDS ORDERED: DUONEB 3 MG/3 ML3 M1 NEB (15:31)
--- NOTE | 2017-05-24 15:39 | NUR ---
Received authorization for patient to go to [facility]. patient can go when ready for discharge.
[2017-05-24 16:00] VITALS: BP 156/86
--- NOTE | 2017-05-24 18:00 | NUR ---
Discharge instructions reviewed with patient/family. Patient receptive and verbalizes understanding. Follow-up care arranged. Written instructions given to patient/family. JIMBO CARBONE
--- NOTE | 2017-05-26 08:06 | NUR ---
PHYSICAL THERAPY CO-SIGN I approve of the Phyical Therapy notes written above. SCOTT SALMON PT
== END 2017-05-24 16:00 | disposition other institution (70) | DRG 871 ==
LOC: ED 08:42 → 5E 11:05 → EDHOLD 11:05 → 5E 11:22
PROVIDERS: Family Medicine Adult Medicine; Internal Medicine; Student in an Organized Health Care Education/Training Program; ADMIT Internal Medicine
DX: A41.9 Sepsis, unspecified organism (principal); G93.41 Metabolic encephalopathy; N17.0 Acute kidney failure with tubular necrosis; I50.43 Acute on chronic combined systolic (congestive) and diastolic (congestive) heart failure; E44.0 Moderate protein-calorie malnutrition; N39.0 Urinary tract infection, site not specified; E11.22 Type 2 diabetes mellitus with diabetic chronic kidney disease; F03.90 Unspecified dementia, unspecified severity, without behavioral disturbance, psychotic disturbance, mood disturbance, and anxiety; I48.0 Paroxysmal atrial fibrillation; I42.0 Dilated cardiomyopathy; I13.0 Hypertensive heart and chronic kidney disease with heart failure and stage 1 through stage 4 chronic kidney disease, or unspecified chronic kidney disease; I08.3 Combined rheumatic disorders of mitral, aortic and tricuspid valves; Z66 Do not resuscitate; Z51.5 Encounter for palliative care; E03.9 Hypothyroidism, unspecified; E78.5 Hyperlipidemia, unspecified; R65.20 Severe sepsis without septic shock; I44.7 Left bundle-branch block, unspecified; D53.9 Nutritional anemia, unspecified; I25.10 Atherosclerotic heart disease of native coronary artery without angina pectoris; N18.3 Chronic kidney disease, stage 3 (moderate); Z95.5 Presence of coronary angioplasty implant and graft; Z90.49 Acquired absence of other specified parts of digestive tract; Z79.84 Long term (current) use of oral hypoglycemic drugs; Z79.899 Other long term (current) drug therapy; Z82.49 Family history of ischemic heart disease and other diseases of the circulatory system; Z68.25 Body mass index [BMI] 25.0-25.9, adult